=== PATIENT | female | born 1965 | race Caucasian/White ===

== ENCOUNTER 2019-09-08 06:23 | Day surgery (SDC) | payer BC ==
[2019-09-07 15:43] LABS: BASOPHILS # (AUTO) 0.1 X10'3 (0-0.2); BASOPHILS % (AUTO) 1.3 % (0-1); EOSINOPHILS # (AUTO) 0.2 X10'3 (0-0.9); EOSINOPHILS % (AUTO) 2.5 % (0-6); LYMPHOCYTES # (AUTO) 2.7 X10'3 (1.1-4.8); LYMPHOCYTES % (AUTO) 29.8 % (21-51); MEAN CORPUSCULAR HEMOGLOBIN 31.2 PG (27.0-31.0); MEAN CORPUSCULAR VOLUME 91.8 FL (78-98); MEAN PLATELET VOLUME 8.7 FL (7.4-10.4); MONOCYTES # (AUTO) 0.5 X10'3 (0-0.9); MONOCYTES % (AUTO) 5.9 % (2-12); NEUTROPHILS # (AUTO) 5.4 X10'3 (1.8-7.7); NEUTROPHILS % (AUTO) 60.5 % (42-75); PRE OP HEMATOCRIT 41.4 % (35.0-45.0); PRE OP HEMOGLOBIN 14.1 g/dL (12.0-16.0); PRE OP PLATELET COUNT 298 X10'3 (140-440); RED BLOOD COUNT 4.52 X10'6 (4.20-5.60); RED CELL DISTRIBUTION WIDTH 13.5 % (11.5-14.5)
[2019-09-07 15:48] LABS: CLARITY,URINE SLIGHTLY CLOUDY (Clear); COLOR,URINE STRAW (Yellow); GLUCOSE, URINE NEGATIVE (Neg); KETONES,URINE NEGATIVE (Neg); LEUKOCYTE ESTERASE ,URINE SMALL (Neg); NITRITES, URINE NEGATIVE (Neg); OCCULT BLOOD,URINE NEGATIVE (Neg); PROTEIN,URINE NEGATIVE (Neg); UROBILINOGEN,URINE 0.2 E.U/dL (0.2-1.0)
[2019-09-07 15:49] LABS: UA COLLECTION TYPE CLN CATCH MIDSTREAM
[2019-09-07 15:51] LABS: SQUAMOUS EPITHELIAL CELL,UR FEW /LPF (FEW)
[2019-09-07 15:52] LABS: MUCUS STRANDS NONE SEEN /LPF (Neg); TRANSITIONAL EPI CELLS,URINE FEW /HPF
[2019-09-07 15:54] LABS: BACTERIA,URINE NONE SEEN /HPF (Neg); RBC,URINE 0-2 /HPF (0-2); WBC,URINE 0-4 /HPF (0-4)
[2019-09-07 15:57] LABS: ALBUMIN/GLOBULIN RATIO 1.3 (1.1-1.5); ALKALINE PHOSPHATASE 91 IU/L (46-116); BLOOD UREA NITROGEN 8 MG/DL (7-18); BUN/CREATININE RATIO 12.5 (6.6-38.0); CALCIUM 9.3 MG/DL (8.5-10.1); CHLORIDE 107 MMOL/L (99-107); CREATININE 0.64 MG/DL (0.40-0.90); PRE OP ALT 37 U/L (30-65); PRE OP ANION GAP 5 (8-16); PRE OP AST 21 U/L (10-37); PRE OP BILIRUB, TOTAL 0.3 MG/DL (0.0-1.0); PRE OP GLUCOSE 106 MG/DL (70-104); PRE OP POTASSIUM 3.7 MMOL/L (3.4-5.1); PRE OP SODIUM 142 MMOL/L (135-145); TOTAL PROTEIN 7.1 G/DL (6.4-8.2); eGFR > 90 ML/MIN
[2019-09-08] VITALS (8 sets, daily range): BP systolic 137–175; BP diastolic 88–104
[~2019-09-08] VITALS: Ht 162.6 cm; Wt 100.9 kg
[~2019-09-08 06:23] MED LIST: ASCO500C15 PO; FISH12002 PO; HYAL1CAP PO; LACT1CAP65 PO; LEVO125T PO; MV-M1TAB19 PO; ROSU10TA2 PO; TOLT4CAP14 PO; clindamycin-Cleocin 900mg/D5W 50 ML IV ONE; famotidine 10mg tablet PO ONE; ringers solution, lacted 1,000 ML IV SCH
[2019-09-08] MEDS ORDERED: ringers solution, lacted 1,000 ML IV SCH (07:54)
[2019-09-08] MEDS ORDERED: fentaNYL/PF 50MCG/1 ML 2ML syringe IV PRN ×2 (07:55)
[2019-09-08] MEDS ORDERED: hydrALAZINE 20mg/ml inj. IV PRN (07:55)
[2019-09-08] MEDS ORDERED: labetalol 20mg/4ml (5mg/ml) syringe IV PRN (07:55)
[2019-09-08] MEDS ORDERED: morphine 4 MG/ML inj SYRINge IV PRN ×2 (07:55)
[2019-09-08] MEDS ORDERED: ondansetron/PF 4mg/2ml inj IV PRN (07:55)
[2019-09-08] MEDS ORDERED: dexamethasone sod phosphate 10mg/ml inj ONE (09:46)
[2019-09-08] MEDS ORDERED: sevoflurane 250ml liquid IH ONE (09:46)
[2019-09-08] MEDS ORDERED: neostigmine methylsulfate 1 MG/ML 10ml vial ONE (09:46)
[2019-09-08] MEDS ORDERED: glycopyrrolate 0.2mg/ml inj ONE (09:46)
[2019-09-08] MEDS ORDERED: fentaNYL/PF 50MCG/1 ML 2ML syringe ONE (09:48)
[2019-09-08] MEDS ORDERED: midazolam 2 mg/2 ml injection ONE (09:48)
[2019-09-08] MEDS ORDERED: rocuronium 10mg/ml inj IV ONE (09:54)
[2019-09-08] MEDS ORDERED: propofol inj 20 ML IV ONE (09:54)
[2019-09-08] MEDS ORDERED: LIDOcaine 2% (20mg/ml) 5ml vial ONE (09:54)
[2019-09-08] MEDS ORDERED: ondansetron/PF 4mg/2ml inj ONE (09:54)
[2019-09-08] MEDS ORDERED: labetalol 20mg/4ml (5mg/ml) syringe IV ONE (10:41)
[2019-09-08] MEDS ORDERED: BUPIVAcaine/PF 2.5 mg/ml (0.25%) 30ml vial ONE (10:41)
[2019-09-08] MEDS ORDERED: ceFAZolin 1000mg inj ONE (10:41)
--- NOTE | 2019-09-08 10:59 | NUR ---
Received from OR via [facility] , accompanied by Anesthesiologist KARLY and report given by Anesthesiolgist. PATIENT WITH 20G PIV IN RIGHT UE RUNNING LR AT 100. 4 ABDOMINAL BANDAIDS PRESENT AND ARE CDI. VSS. 10L MASK ON WITH 93%. VSS Addendum: 09/08/19 at 1108 by Elliot Maguire RN, RN Amended: Links added.
== END 2019-09-08 11:59 | disposition home or self-care (01) ==
LOC: PAS 06:23
PROVIDERS: ATTEND Surgery
DX: K80.10 Calculus of gallbladder with chronic cholecystitis without obstruction (principal); K42.0 Umbilical hernia with obstruction, without gangrene; E03.9 Hypothyroidism, unspecified; E78.00 Pure hypercholesterolemia, unspecified; M47.892 Other spondylosis, cervical region; E66.9 Obesity, unspecified; Z68.38 Body mass index [BMI] 38.0-38.9, adult; Z90.710 Acquired absence of both cervix and uterus; Z98.890 Other specified postprocedural states; Z90.721 Acquired absence of ovaries, unilateral; Z98.51 Tubal ligation status; Z88.5 Allergy status to narcotic agent; Z88.0 Allergy status to penicillin; Z72.89 Other problems related to lifestyle; Z80.3 Family history of malignant neoplasm of breast; R10.9 Unspecified abdominal pain
CPT/HCPCS: 36415; 47562; 49587; 80053; 81001; 82948; 85025; 87088; 93005; J0690; J1100; J2001; J2250; J2405; J2704; J2710; J3010; J3490; J7120; A4215; A4618; A7000